=== PATIENT | female | born 1985 | race African-American/Black ===

== ENCOUNTER 2021-11-03 01:11 | Emergency (ER) | payer MEDICAID, OTHER ==
[~2021-11-03] VITALS: Ht 170.2 cm; Wt 84.0 kg
[2021-11-03] MEDS ORDERED: ALBUTEROL (0.083%) 2.5MG/3ML NEB HHN STA (02:17)
[2021-11-03] MEDS ORDERED: PREDNISONE 20MG TABLET PO STA (02:17)
[2021-11-03] MEDS ORDERED: IPRATROPIUM BROMIDE (0.02%) 0.5MG/2.5ML NEB HHN STA (02:17)
[2021-11-03] MEDS ORDERED: PRED10TA MT (04:57)
[2021-11-03] MEDS ORDERED: FLUT1BLS3 INH (04:57)
[2021-11-03 05:00] VITALS: BP 123/59
== END 2021-11-03 05:17 | disposition home or self-care (01) ==
LOC: ER 01:11
DX: J45.901 Unspecified asthma with (acute) exacerbation (principal); Z88.6 Allergy status to analgesic agent
CPT/HCPCS: 93005; 94644; 99285; J7512; Z7610